=== PATIENT | male | born 1985 | race Caucasian/White ===

== ENCOUNTER 2019-04-07 05:59 | Day surgery (SDC) | payer BC ==
[~2019-04-07] VITALS: Ht 177.8 cm; Wt 117.9 kg
[~2019-04-07 05:59] MED LIST: CETIRIZINE HCL5 MG PO; RANITIDINE HCL150 M1 PO; ULTRAM50 MG PO
[2019-04-07 06:31] LABS: CALC OSMOLALITY 278 mosm/kg (275-300); CALCIUM 8.5 mg/dL (8.5-10.1); CARBON DIOXIDE 28.3 mmol/L (21.0-32.0); CHLORIDE - SERUM 105 mmol/L (98-107); CREATININE - SERUM 0.8 mg/dL (0.6-1.3); GLUCOSE 98 mg/dL (74-106); SODIUM 140 mmol/L (136-145); UREA NITROGEN 13 mg/dL (7-18); eGFR NON AFRICAN AMERICAN > 90 mL/min (90-120)
[2019-04-07 07:19] LABS: HEMATOCRIT 42.5 % (42.0-54.0); HEMOGLOBIN 14.4 g/dL (13.5-17.5); MCH 28.1 pg (26.0-34.0); MCHC 33.9 g/dL (31.0-37.0); MCV 82.8 fL (80.0-100.0); MEAN PLATELET VOLUME 9.4 fL (7.4-10.4); RBC 5.13 10x6/uL (4.20-6.10); RDW 13.2 % (11.5-14.5); WBC 9.8 10x3/uL (4.8-10.8)
[2019-04-07 07:50] VITALS: BP 137/73; Ht 177.8 cm; Wt 117.9 kg
[2019-04-07] MEDS ORDERED: VISTARIL50 MG PO (12:54)
[2019-04-07] MEDS ORDERED: KEFLEX500 MG PO (12:54)
[2019-04-07] MEDS ORDERED: PERCOCET 10-321 EAC1 PO (12:54)
--- NOTE | 2019-04-07 16:23 | OP ---
PATIENT NAME: CHI FORBES MEDICAL RECORD: [id number] :87 LOCATION:[facility] ADMISSION DATE: SURGEON: BOO GONZALES DO DATE OF OPERATION: 04/07/2019 PROCEDURE PERFORMED: Right knee ACL reconstruction with a lateral meniscal repair. PREOPERATIVE DIAGNOSIS: Right knee anterior cruciate ligament rupture. POSTOPERATIVE DIAGNOSES: Right knee anterior cruciate ligament rupture with lateral meniscal tear. INDICATIONS: Mr. Forbes is a 33-year-old male who injured his knee approximately 2 weeks ago. He got an MRI, which demonstrated an ACL rupture and did not show a meniscus tear; however, I told him I would look as sometimes they do not show up on MRI and repair if needed. He was okay with that plan and was aware of the risks including infection, bleeding, damage to nerves and vessels, risk of an allograft, which we are using, blood clots and even , and he signed a consent. SURGEON: Boo Gonzales DO DESCRIPTION OF PROCEDURE: The patient was given a block by anesthesia in the preoperative area and taken to the operative suite, laid in supine position, given 2 grams of Ancef. The right lower extremity was prepped and draped in sterile fashion after he was sedated and an LMA was placed. Timeout was performed. Everyone was in agreement with the correct side, site, patient and procedure. We then began by establishing a lateral portal with an 11-blade scalpel. Scope was then entered in the knee. The knee was inspected. No loose bodies seen in the lateral or medial gutters or the suprapatellar pouch. A medial portal was then established using 18-gauge spinal needle and 11-blade scalpel. The probe was then brought in and probed the medial meniscus and then no tear seen. The ACL was seen to be gone. The knee was then [id number] and the lateral meniscus was seen to have a tear on the undersurface of the posterior horn. Fast-Fix was then brought in and two Fast-Fix sutures were used to fix the lateral meniscus and any remaining that was still torn was trimmed out with a biter. The notch was then cleaned out and the femoral tunnel was drilled with 9. The graft that had been repaired fit through only 5. The tibia was then drilled also with a 9, first reaming with the 6. The graft was then passed. The button was thought to be flipped. This was then tensioned and set with the toggle with the GraftBolt. However, after examining the knee, I did not feel it was a very tight construct. I had gotten an x-ray and we had seen that the button that had not flipped had not gone through the cortex of the lateral femur. This graft was then taken out as well as the hardware. Once it was cleaned up and repassed a new graft as any debris was cleaned out of the knee from the previous one and then the new graft was passed with an XL button. We visually saw it flipped on the cortex and then tensioned the graft; it was tensioned, and then a 9 and 10 dilator were used on the tibial tunnel and then a 10 GraftBolt fixation was used fixing it very tightly. We then examined the knee and it was seen to have a good strong ACL and negative Rico's, negative anterior drawer and no pivot shift. The excess suture was pulled off the button from the lateral femur and it was cut as well as the excess graft on the tibia was cut. The wounds were then closed with 2-0 Vicryl in inverted interrupted fashion and 4-0 Monocryl on the larger ones and then dressed with Steri-Strips, OPERATIVE REPORT [id number] ANGELINE,CHI Adaptic, 4 x 4's, ABD, Webril and Izaiah wrap and then IRVING hose stocking on the knee. The patient was placed in ACL brace, awakened and taken to recovery in stable condition. Blood loss was approximately 50 mL. COMPLICATIONS: None. TRANSINT:[id number] Voice Confirmation ID: [id number] DOCUMENT ID: [id number] BOO GONZALES DO at 1623 CC: [id number] DICTATION DATE: 04/07/19 1258 SUPERINTENDENT MEASUREMENT: 04/07/19 1429 REG [facility] [address] [id number]
== END 2019-04-07 15:40 | disposition home or self-care (01) ==
LOC: D.OPS 05:59
PROVIDERS: Anesthesiology; ATTEND Orthopaedic Surgery
DX: S83.511A Sprain of anterior cruciate ligament of right knee, initial encounter (principal); S83.282A Other tear of lateral meniscus, current injury, left knee, initial encounter; X58.XXXA Exposure to other specified factors, initial encounter; Z01.812 Encounter for preprocedural laboratory examination